=== PATIENT | female | born 1960 ===

== ENCOUNTER 2024-03-24 12:15 | Inpatient (IN) | payer OTHER ==
[~2024-03-24] VITALS: Ht 162.6 cm; Wt 81.2 kg
[2024-03-24] MEDS ORDERED: HUMULIN N100 UNIT/2 IM (13:18)
[2024-03-24] MEDS ORDERED: TRAZODONE HCL150 MG PO (13:18)
[2024-03-24] MEDS ORDERED: TRIJARDY XR 5-1 EACH PO (13:18)
[2024-03-24] MEDS ORDERED: ZOLOFT50 MG PO (13:19)
[2024-03-24] MEDS ORDERED: PEPCID AC20 MG PO (13:19)
[2024-03-24] MEDS ORDERED: ATIVAN0.5 M1 PO (13:19)
[2024-03-31] MEDS ORDERED: METRONIDAZOLE/SODIUM CHLORIDE 500 MG/100 ML PIGGYBACK IV SCH (08:30)
[2024-03-31] MEDS ORDERED: BUPIVACAINE HCL 30 ML VIAL IJ SCH (08:30)
[2024-03-31] MEDS ORDERED: CEFTRIAXONE SODIUM 2,000 MG VIAL IV SCH (08:30)
[2024-03-31] MEDS ORDERED: LIDOCAINE HCL 1%/EPINEPHRINE 20ML VIAL IJ SCH (08:30)
[2024-03-31] MEDS ORDERED: OxyCODONE HCL 5 MG TABLET (ROXICODONE) PO PRN (09:00)
[2024-03-31] MEDS ORDERED: MORPHINE SULFATE 4 MG/ML CARTRIDGE IV PRN (09:00)
[2024-03-31] MEDS ORDERED: DEXTROSE 50 % IN WATER 0.5 G/ML DISP.SYRIN IV PRN (09:00)
[2024-03-31] MEDS ORDERED: RINGERS SOLUTION,LACTATED 1,000 ML IV SCH (09:00)
[2024-03-31] MEDS ORDERED: GABAPENTIN 300 MG CAPSULE PO SCH (09:00)
[2024-03-31] MEDS ORDERED: HYOSCYAMINE SULFATE 0.125 MG TAB.SUBL SL SCH (09:00)
[2024-03-31] MEDS ORDERED: FAMOTIDINE/PF 20 MG/2 ML VIAL IV PUSH SCH (09:00)
[2024-03-31] MEDS ORDERED: ONDANSETRON HCL 2 MG/ML VIAL IV PRN (09:00)
[2024-03-31] MEDS ORDERED: MORPHINE SULFATE 4 MG/ML VIAL IV ONE ×2 (09:50→10:20)
[2024-03-31] MEDS ORDERED: AMLODIPINE BESYL5 MG (10:17)
[2024-03-31] MEDS ORDERED: LOSARTAN-HCTZ1 EAC1 (10:17)
[2024-03-31] MEDS ORDERED: GABAPENTIN600 MG (10:17)
[2024-03-31] MEDS ORDERED: SIMVASTATIN20 MG (10:18)
[2024-03-31 12:27] LABS: HEMATOCRIT 37.2 % (36.0-45.00); HEMOGLOBIN 12.3 g/dL (12.0-15.00); MEAN CELL VOLUME 91.9 fL (80.00-100.00); MEAN CORPUSCULAR HEMOGLOBIN 30.4 pg (27.00-32.0); MEAN CORPUSCULAR HGB CONC 33.1 g/dl (32.0-36.0); PLATELET COUNT 241 K/uL (150-450); RED BLOOD COUNT 4.05 M/uL (4.00-6.00)
[2024-03-31 13:31] LABS: ALBUMIN 3.4 gm/dL (3.4-5.0); CALCIUM 8.8 mg/dL (8.5-10.1); CREATININE SERUM 0.58 mg/dL (0.55-1.02); GFR 104.01; MAGNESIUM 1.8 mg/dL (1.8-2.4); PHOSPHOROUS 3.1 mg/dL (2.5-4.9); POTASSIUM 3.77 mEq/L (3.5-5.1)
[2024-03-31] MEDS ORDERED: ACETAMINOPHEN 500 MG GEL..CAP PO SCH (14:00)
[2024-03-31 14:47] VITALS: BP 115/74; O2SAT 98
[2024-03-31 16:00] VITALS: BP 112/71; O2SAT 95
[2024-03-31] MEDS ORDERED: POLYETHYLENE GLYCOL 3350 17 GM BLIST.PACK PO SCH (17:00)
[2024-03-31] MEDS ORDERED: ENALAPRILAT DIHYDRATE 1.25 MG/ML VIAL IV PRN (18:00)
[2024-04-01 00:25] VITALS: BP 124/74; O2SAT 96
[2024-04-01 07:43] LABS: HEMATOCRIT 35.5 % (36.0-45.00); MEAN CORPUSCULAR HEMOGLOBIN 31.1 pg (27.00-32.0); MEAN CORPUSCULAR HGB CONC 33.8 g/dl (32.0-36.0); PLATELET COUNT 256 K/uL (150-450); RED BLOOD COUNT 3.86 M/uL (4.00-6.00); RED CELL DISTRIBUTION WIDTH 12.9 % (11.5-14.5)
[2024-04-01 08:00] VITALS: BP 121/72; O2SAT 97
[2024-04-01 08:35] LABS: ALBUMIN 3.2 gm/dL (3.4-5.0); CALCIUM 8.7 mg/dL (8.5-10.1); CREATININE SERUM 0.55 mg/dL (0.55-1.02); GFR 110.59; MAGNESIUM 1.8 mg/dL (1.8-2.4); PHOSPHOROUS 2.8 mg/dL (2.5-4.9); POTASSIUM 3.73 mEq/L (3.5-5.1)
[2024-04-01] MEDS ORDERED: AMLODIPINE BESYLATE 5 MG TABLET PO SCH (09:00)
[2024-04-01] MEDS ORDERED: SERTRALINE HCL 50 MG TABLET PO SCH (09:00)
[2024-04-01] MEDS ORDERED: LOSARTAN/HYDROCHLOROTHIAZIDE 1 UDTAB TABLET PO SCH (09:00)
[2024-04-01] MEDS ORDERED: INSULIN NPH HUMAN ISOPHANE 1,000 UNITS/10 ML UNITS SUBCUTANEO STA (11:08)
[2024-04-01] MEDS ORDERED: DEXTROSE 50 % IN WATER 0.5 G/ML DISP.SYRIN IV PRN (11:15)
[2024-04-01] MEDS ORDERED: INSULIN LISPRO 1,000 UNIT/10 ML UNITS SUBCUTANEO PRN (11:15)
[2024-04-01] MEDS ORDERED: ENOXAPARIN SODIUM 40 MG/0.4 ML SYRINGE SUBCUTANEO SCH (17:00)
[2024-04-01] MEDS ORDERED: INSULIN NPH HUMAN ISOPHANE 1,000 UNITS/10 ML UNITS SUBCUTANEO SCH (17:00)
[2024-04-01] MEDS ORDERED: SIMVASTATIN 20 MG TABLET PO SCH (17:00)
[2024-04-01 17:19] VITALS: BP 123/79; O2SAT 95
[2024-04-02 01:17] VITALS: BP 119/70; O2SAT 97
[2024-04-02 08:12] VITALS: BP 119/72; O2SAT 95
[2024-04-02 08:28] LABS: HEMATOCRIT 33.5 % (36.0-45.00); HEMOGLOBIN 11.5 g/dL (12.0-15.00); MEAN CELL VOLUME 90.4 fL (80.00-100.00); MEAN CORPUSCULAR HEMOGLOBIN 31.1 pg (27.00-32.0); MEAN CORPUSCULAR HGB CONC 34.4 g/dl (32.0-36.0); PLATELET COUNT 237 K/uL (150-450); RED CELL DISTRIBUTION WIDTH 13.3 % (11.5-14.5)
[2024-04-02 08:57] LABS: CALCIUM 8.6 mg/dL (8.5-10.1); CREATININE SERUM 0.46 mg/dL (0.55-1.02); GFR 135.91; MAGNESIUM 1.7 mg/dL (1.8-2.4); POTASSIUM 3.52 mEq/L (3.5-5.1)
[2024-04-02] MEDS ORDERED: ENOXAPARIN SODIUM 40 MG/0.4 ML SYRINGE SUBCUTANEO SCH (09:00)
[2024-04-02] MEDS ORDERED: MAGNESIUM SULFATE IN WATER 50 ML IV NR (11:30)
[2024-04-02] MEDS ORDERED: POTASSIUM PHOS,M-BASIC-D-BASIC 3 MM/ML VIAL IV NR (11:30)
[2024-04-02 16:00] VITALS: BP 137/79; O2SAT 96
[2024-04-03 01:04] VITALS: BP 108/70; O2SAT 97
[2024-04-03 08:00] VITALS: BP 150/70; O2SAT 99
[2024-04-03] MEDS ORDERED: ACETAMINOPHEN500 M2 PO (09:43)
[2024-04-03] MEDS ORDERED: NEURONTIN300 MG PO (09:43)
== END 2024-04-03 11:37 | disposition home or self-care (01) | DRG 331 ==
LOC: O/R 03-31 05:40 → SURH 03-31 12:15
PROVIDERS: Internal Medicine Geriatric Medicine; ADMIT Surgery; ATTEND Surgery
PROC: 07BC4ZZ Excision of Pelvis Lymphatic, Percutaneous Endoscopic Approach (ICD-10-PCS; 2024-03-31)
PROC: 0DTF4ZZ Resection of Right Large Intestine, Percutaneous Endoscopic Approach (ICD-10-PCS; principal; 2024-03-31 13:15)
DX: D12.0 Benign neoplasm of cecum (principal); R59.0 Localized enlarged lymph nodes; K63.5 Polyp of colon; E83.42 Hypomagnesemia; E83.39 Other disorders of phosphorus metabolism; E11.9 Type 2 diabetes mellitus without complications; I10 Essential (primary) hypertension; Z79.84 Long term (current) use of oral hypoglycemic drugs